=== PATIENT | female | born 1960 | race Caucasian/White ===

== ENCOUNTER → 2018-02-11 | Outpatient (CLI) | payer BC | LOC: MC.RAD 10:29 | DX: Z12.31 Encounter for screening mammogram for malignant neoplasm of breast (principal) ==

== ENCOUNTER → 2022-07-15 | Outpatient (CLI) | payer BC | LOC: COL.RAD 11:37 | DX: M25.561 Pain in right knee (principal); Z96.651 Presence of right artificial knee joint ==